=== PATIENT | female | born 1940 | race Caucasian/White ===

== ENCOUNTER 2017-07-19 12:38 | Outpatient (CLI) | payer MEDICARE ==
--- NOTE | 2017-07-19 14:49 | RAD ---
PA AND LATERAL CHEST: INDICATIONS: Dyspnea. COMPARISON: None. FINDINGS: There is moderate to severe COPD change. There is calcific granuloma within both lower lobes. Heart size is within normal limits. There are vascular calcifications involving the aortic arch. There i s mild pleural and parenchymal scarring involving the lung apices. There is diffuse osteopenia. The re is scattered degenerative change. IMPRESSION: 1. Prominent chronic obstructive pulmonary change. 2. No definite acute abnormality. POS: [facility]
== END 2017-07-19 12:39 | disposition home or self-care (01) ==
LOC: RAD 12:38
PROVIDERS: ATTEND Internal Medicine Critical Care Medicine
DX: R06.00 Dyspnea, unspecified (principal); J44.9 Chronic obstructive pulmonary disease, unspecified
CPT/HCPCS: 71046